=== PATIENT | female | born 1970 | race Caucasian/White ===

== ENCOUNTER 2019-04-14 15:38 | Outpatient (CLI) | payer BC, MEDICAID, SELFPAY ==
[2019-04-14 16:35] LABS: Basophils % 0.5 %; Eosinophils # 0.1 10^3/uL (0.0-0.8); Eosinophils % 2.3 %; Hematocrit 35.7 % (37.0-47.0); Hemoglobin 11.2 g/dL (11.5-15.3); Lymphocytes % 45.5 %; Mean Corpuscular HGB Conc 31.4 g/dL (30.0-36.0); Mean Corpuscular Hemoglobin 29.2 pg (28.0-34.0); Mean Corpuscular Volume 93.2 fL (81-99); Mean Platelet Volume 9.1 fL (7.4-10.4); Monocytes # 0.4 10^3/uL (0.2-0.9); Monocytes % 8.9 %; Neutrophils # 1.8 10^3/uL (1.8-7.7); Neutrophils % 42.6 %; Nucleated Red Blood Cells % 0 %; Platelet Count 223 10^3/cmm (130-400); Red Blood Count 3.83 10^6/uL (4.1-5.3); Red Cell Distribution Width 12.1 % (12.1-15.1); White Blood Count 4.3 10^3/uL (4.0-10.0)
== END 2019-04-14 15:39 | disposition home or self-care (01) ==
LOC: ONCMED 15:43
PROVIDERS: Family Provider Electrodiagnostic Medicine; PCP Electrodiagnostic Medicine; Visit Provider Internal Medicine Hematology & Oncology
DX: D05.12 Intraductal carcinoma in situ of left breast (principal)
CPT/HCPCS: 36415; 85025

== ENCOUNTER 2019-04-18 15:52 | Outpatient (CLI) | payer BC, MEDICAID, SELFPAY | END 2019-04-18 15:53 | disposition home or self-care (01) | PROVIDERS: Family Provider Electrodiagnostic Medicine; PCP Electrodiagnostic Medicine; Visit Provider Internal Medicine Hematology & Oncology | DX: D05.12 Intraductal carcinoma in situ of left breast (principal); D64.9 Anemia, unspecified; Z17.0 Estrogen receptor positive status [ER+]; Z92.3 Personal history of irradiation; Z79.810 Long term (current) use of selective estrogen receptor modulators (SERMs) | CPT/HCPCS: 99214 ==

== ENCOUNTER 2019-08-16 08:56 | Outpatient (CLI) | payer BC, MEDICAID, SELFPAY ==
--- NOTE | 2019-08-16 09:18 | MM_ITS ---
WS: [id number] DIAGNOSTIC BILATERAL DIGITAL MAMMOGRAM WITH CAD HISTORY: HX OF BREAST CA COMPARISON: 07/23/2018, 05/28/2017 and 06/09/2016 TECHNIQUE: Bilateral craniocaudad, mediolateral oblique, and mediolateral views are submitted. Comput er aided detection utilized. Breast composition: There are scattered areas of fibroglandular density. Postsurgical changes in the posterior LEFT breast. There is distortion in the posterior LEFT breast which is stable. No new mass. RIGHT breast is negative. No retraction of either nipple. No suspicious calcification. MM/[id number] IMPRESSION: BI-RADS: 2-Benign FOLLOW UP: 1 Year Follow-up
== END 2019-08-16 08:57 | disposition home or self-care (01) ==
LOC: RADSHAW 09:02
PROVIDERS: PCP Electrodiagnostic Medicine; Visit Provider Internal Medicine Hematology & Oncology
DX: Z85.3 Personal history of malignant neoplasm of breast (principal)
CPT/HCPCS: 77066

== ENCOUNTER 2019-10-11 13:41 | Outpatient (CLI) | payer BC, MEDICAID, SELFPAY ==
[2019-10-11 13:59] LABS: Basophils % 0.2 %; Eosinophils # 0.1 10^3/uL (0.0-0.8); Eosinophils % 1.4 %; Hemoglobin 11.6 g/dL (11.5-15.3); Lymphocytes # 1.3 10^3/uL (0.8-4.8); Lymphocytes % 31.5 %; Mean Corpuscular HGB Conc 31.4 g/dL (30.0-36.0); Mean Corpuscular Hemoglobin 29.8 pg (28.0-34.0); Mean Corpuscular Volume 95.1 fL (81-99); Mean Platelet Volume 9.3 fL (7.4-10.4); Monocytes # 0.3 10^3/uL (0.2-0.9); Neutrophils # 2.48 10^3/uL (1.8-7.7); Neutrophils % 59.7 %; Nucleated Red Blood Cells % 0 %; Platelet Count 192 10^3/cmm (130-400); Red Blood Count 3.89 10^6/uL (4.1-5.3); Red Cell Distribution Width 11.8 % (12.1-15.1); White Blood Count 4.2 10^3/uL (4.0-10.0)
--- NOTE | 2019-10-11 16:05 | ONC FU_ITS ---
Dr. 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 She had palpated a breast mass for 2 months prior to presentation. The mammogram 05/04/2014 showed a cluster of calcification posterior to the large cyst in the left breast. On 05/19/2014 stereotactic biopsy revealed ductal carcinoma in situ (DCIS) with focal comedo necrosis, ER 96%, WA 95%. Cytology on cystic fluid was not performed. On 06/16/2014 she underwent a left breast lumpectomy by Dr. Trivedi. Her surgical pathology consisted of 2 specimens. Both showed rare foci of microscopic comedo DCIS and solid DCIS, measuring 3 mm and 2 mm respectively, nuclear grade 3 out of 3, margins were negative. She completed adjuvant radiation treatment to the left breast in August 2014. She began on chemoprevention with tamoxifen in October 2014. , Completed 5 years of tamoxifen in September 2019 Her medical history is otherwise unremarkable. She has no other ongoing medical illnesses. She is a nonsmoker. She comes today for follow-up. She continues on tamoxifen. She is tolerating it well .Patient recently noted a small nodule in her breast rt and underwent mammogram on 06/09/2016 and also had right breast ultrasound which confirmed Bi-RADS category 4a suspicious and biopsy was suggested underwent sonogram guided biopsy on 07/04/2016 it came back benign breast tissue with usual duct hyperplasia and focal fibrosis with changes suggesting cyst wall Mammogram done on 07/23/2018 showed no abnormality Underwent menopause in July 2018, her [employer] physician Dr. Champagne examined in October 2018, that time she underwent endometrial biopsy was negative. Also check her hormonal level.As per patient she was told, everything was fine. Follow-up mammogram done on August 16, 2019 showed BI-RADS 2 benign findings Came for follow-up, denies any specific complaints, no fever chills, no nausea or vomiting, no diarrhea constipation, no nipple discharge, no breast tenderness, no axillary lymphadenopathy, no vaginal bleeding. Stopped having menstrual periods many months ago Medications: Biotin 1 Tablet Oral daily, Cholecalciferol 1 (400 Units) Tablet Oral daily, Tamoxifen Citrate 1 (20 mg) Tablet Oral daily, Vitamin C 1 Tablet (of 500 mg) Oral daily Allergies: No Known Allergies. Review of Systems: Constitutional - Her energy level is good. Appetite is good and weight is stable. No fever, chills, hot flashes, or night sweats, ENMT - No sinus congestion/drainage. No mouth sores. No sore throat or difficulty swallowing, Hematologic/Lymphatic - No abnormal bruising or bleeding, Respiratory - No shortness of breath. No cough. No pleuritic pain or hemoptysis, Cardiovascular - No angina pain. No palpitations, Gastrointestinal - No nausea or vomiting. No heartburn or acid reflux. No diarrhea or constipation. No blood in the stool or black stools, Genitourinary (F) - No dysuria or hematuria. No urinary frequency. No urgency or incontinence, Musculoskeletal - No joint or bone pain, Integumentary - Denies alopecia, blistering, bruising, dry skin, facial burning, nail changes, photosensitivity, pruritus, rash and urticaria, Neurologic - No headache or dizziness. No numbness/paresthesias or other focal neurologic symptoms, Psychiatric - No anxiety or depression. No insomnia. Vital Signs: Performed on Oct 11, 2019 14:52 Height - 65.00 in Weight - 155.6 lbs (HIGH) BSA - 1.78 sq.m BMI - 25.89 Temperature - 99.3 F (HIGH) Pulse - 85 /min Respiration - 18 /min BP - 151/91 mm(hg) (HIGH) O2 Sat - 97 % Pain - 0 Performance Status: 0 - Fully active, able to carry on all predisease activities without restrictions. (ECOG) Physical Examination: Respiratory - Lungs are clear, Cardiovascular - Regular rate and rhythm of heart, Gastrointestinal - Soft, bowel sounds present, Extremities - No visible edema. Lab/Imaging: Test performed on Apr 14, 2019 15:47 WBC 4.3 10 3/uL RBC 3.83 10 6/uL HGB 11.2 g/dL HCT 35.7 % MCV 93.2 fL MCH 29.2 pg MCHC 31.4 g/dL RDW 12.1 % Platelet Count 223 10 3/cmm MPV 9.1 fL Neutrophils 1.8 10 3/uL Lymphocytes 2.0 10 3/uL Monocytes 0.4 10 3/uL Eosinophils 0.1 10 3/uL Basophils 0.0 10 3/uL Neutrophil % 42.6 % Lymphocyte % 45.5 % Monocyte % 8.9 % Eosinophil % 2.3 % Basophils % 0.5 % Impression: 1. Pre-menopausal woman with nuclear grade 3 ductal carcinoma in situ (DCIS) of the left breast, stage 0 (T1is, N0, M0), ER/WA positive. She underwent left breast lumpectomy on 10/16/2014. 2. She completed adjuvant radiation treatment in August 2014. She eventually agreed and began chemoprevention with tamoxifen in October 2014, planned for 5 years. 3. Adjuvant hormonal therapy with tamoxifen 20 mg daily began in October 2014.Completed 5 years of tamoxifen in September 2019 4. abnormal mammogram right breast on 06/09/2016, confirmed with ultrasound Status post ultrasound guided needle biopsy on 07/04/2016 [address] benign breast tissue with usual duct hyperplasia and focal fibrosis with changes suggesting cyst wall Mammogram done on 05/28/2017 showed BI-RADS; 2-benign, Follow-up mammogram done on August 16, 2019 showed BI-RADS 2, benign Plan: Discussed with patient regarding her labs white blood count 4.2 hemoglobin 11.6 crit 37 platelets 192,000 and follow-up mammogram done in August 2019 shows benign findings, BI-RADS 2 Clinically, patient is doing well with no signs symptom suggestive of recurrence of disease, her follow-up mammogram is within normal limits and patient has completed 5 years of tamoxifen without any significant problem, at this point will discontinue her tamoxifen and then follow her on a yearly basis with follow-up mammogram. Mild anemia, hemoglobin improved to 11.6 g from 11.2 g and now in normal range, will continue to monitor. She return to clinic in 1 year with mammogram Signed By: Jose Nielsen M.D. <<Signature on File>>
== END 2019-10-11 13:42 | disposition home or self-care (01) ==
LOC: ONCMED 13:45
PROVIDERS: PCP Electrodiagnostic Medicine; Visit Provider Internal Medicine Hematology & Oncology
DX: Z08 Encounter for follow-up examination after completed treatment for malignant neoplasm (principal); Z86.000 Personal history of in-situ neoplasm of breast; D64.9 Anemia, unspecified; Z92.23 Personal history of estrogen therapy; Z92.3 Personal history of irradiation; Z92.21 Personal history of antineoplastic chemotherapy
CPT/HCPCS: 85025; G0463

== ENCOUNTER 2020-08-17 10:41 | Outpatient (CLI) | payer BC, MEDICAID, SELFPAY ==
--- NOTE | 2020-08-17 10:59 | MM_ITS ---
WS: [id number] BILATERAL DIGITAL DIAGNOSTIC MAMMOGRAM MAMMOGRAPHY WITH CAD CLINICAL INFORMATION: HX OF BREAST CA COMPARISON: August 16, 2019 TECHNIQUE: Bilateral CC, MLO, and ML views. FINDINGS: Scattered fibroglandular densities bilaterally. Punctate calcifications left breast. Postoperative ch anges posterior left breast with parenchymal scarring. No suspicious focal mass, asymmetry, calcifications, or architectural distortion. No evidence of melinda gnancy. MM/[id number] IMPRESSION: BI-RADS: 2-Benign FOLLOW UP: 1 Year Follow-up Recommend return to annual diagnostic mammography.
== END 2020-08-17 10:42 | disposition home or self-care (01) ==
PROVIDERS: PCP Electrodiagnostic Medicine; Visit Provider Internal Medicine Hematology & Oncology
DX: Z85.3 Personal history of malignant neoplasm of breast (principal)
CPT/HCPCS: 77066

== ENCOUNTER 2020-11-28 16:16 | Outpatient (CLI) | payer BC, MEDICAID, SELFPAY ==
--- NOTE | 2020-11-29 08:04 | ONC FU_ITS ---
Dr. 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 She had palpated a breast mass for 2 months prior to presentation. The mammogram 05/04/2014 showed a cluster of calcification posterior to the large cyst in the left breast. On 05/19/2014 stereotactic biopsy revealed ductal carcinoma in situ (DCIS) with focal comedo necrosis, ER 96%, WI 95%. Cytology on cystic fluid was not performed. On 06/16/2014 she underwent a left breast lumpectomy by Dr. Trivedi. Her surgical pathology consisted of 2 specimens. Both showed rare foci of microscopic comedo DCIS and solid DCIS, measuring 3 mm and 2 mm respectively, nuclear grade 3 out of 3, margins were negative. She completed adjuvant radiation treatment to the left breast in August 2014. She began on chemoprevention with tamoxifen in October 2014. , Completed 5 years of tamoxifen in September 2019 Her medical history is otherwise unremarkable. She has no other ongoing medical illnesses. She is a nonsmoker. She comes today for follow-up. She continues on tamoxifen. She is tolerating it well .Patient recently noted a small nodule in her breast rt and underwent mammogram on 06/09/2016 and also had right breast ultrasound which confirmed Bi-RADS category 4a suspicious and biopsy was suggested underwent sonogram guided biopsy on 07/04/2016 it came back benign breast tissue with usual duct hyperplasia and focal fibrosis with changes suggesting cyst wall Mammogram done on 07/23/2018 showed no abnormality Underwent menopause in July 2018, her [employer] physician Dr. Champagne examined in October 2018, that time she underwent endometrial biopsy was negative. Also check her hormonal level.As per patient she was told, everything was fine. Follow-up mammogram done on August 16, 2019 showed BI-RADS 2 benign findings Mammogram done on August 17, 2020 was BI-RADS 2, benign Came for follow-up, denies any specific complaint except slowing down menses sometime spotting only and still very regular but no in between bleeding,, patient is attributing to the possibility of beginning menopause, as per patient she used to follow Dr. Champagne, [employer] SERV[employer] SUPER[employer] at [facility], on regular basis but now due to insurance coverage she is considering switching her care to local F[employer] SERVICE SUPERVISOR. Denies any new bony pains denies any fever chills, denies any nausea or vomiting denies any weight loss denies any headaches, patient had mammogram done in August, it was unremarkable Medications: Biotin 1 Tablet Oral daily, Cholecalciferol 1 (400 Units) Tablet Oral daily, Tamoxifen Citrate 1 (20 mg) Tablet Oral daily, Vitamin C 1 Tablet (of 500 mg) Oral daily Allergies: No Known Allergies. Review of Systems: Review of Systems is not available for this patient. Vital Signs: Performed on Nov 28, 2020 16:32 Height - 65.00 in Weight - 168.6 lbs (HIGH) BSA - 1.84 sq.m BMI - 28.06 Temperature - 97.9 F (LOW) Pulse - 85 /min Respiration - 18 /min BP - 166/90 mm(hg) (HIGH) O2 Sat - 97 % Pain - 0 Fatigue - 0 Performance Status: 0 - Fully active, able to carry on all predisease activities without restrictions. (ECOG) Physical Examination: Respiratory - Lungs are clear to auscultation, Cardiovascular - Regular rate and rhythm of heart, Gastrointestinal - Soft, bowel sounds present, Extremities - No visible edema. Lab/Imaging: Most recent lab results are not available for this patient. Impression: 1. Pre-menopausal woman with nuclear grade 3 ductal carcinoma in situ (DCIS) of the left breast, stage 0 (T1is, N0, M0), ER/[place] positive. She underwent left breast lumpectomy on 10/16/2014. 2. She completed adjuvant radiation treatment in August 2014. She eventually agreed and began chemoprevention with tamoxifen in October 2014, planned for 5 years. 3. Adjuvant hormonal therapy with tamoxifen 20 mg daily began in October 2014.Completed 5 years of tamoxifen in September 2019 4. abnormal mammogram right breast on 06/09/2016, confirmed with ultrasound Status post ultrasound guided needle biopsy on 07/04/2016 [address] path benign breast tissue with usual duct hyperplasia and focal fibrosis with changes suggesting cyst wall Mammogram done on 05/28/2017 showed BI-RADS; 2-benign, Follow-up mammogram done on August 16, 2019 showed BI-RADS 2, benign mammogram finding which was done on August 17, 2020 and it showed BI-RADS 2, benign Plan: Discussed with patient regarding her mammogram finding which was done on August 17, 2020 and it showed BI-RADS 2, benign and follow-up in 1 year recommended Clinically, patient has no signs symptom suggestive of recurrence of disease as far as DCIS left breast is concerned, patient has had completed 5 years of tamoxifen in September 2020. And now being followed on a yearly basis with follow-up mammogram, due to insurance and copayments and inconvenience, patient was wondering if she can follow with her primary care physician on regular basis and if follow-up mammogram shows any abnormality she would contact us so in that case, we will see her on as-needed basis. As far as slowing down of menses concerned, probably patient is approaching menopause and patient is considering establishing care with a local [employer]PER[employer]OR as her previous [employer] physician Dr. Champagne at [facility], as per patient is out of her insurance network now. We will refer her to [facility] department for evaluation and follow-up Signed By: Jose Nielsen M.D. <<Signature on File>>
== END 2020-11-28 16:17 | disposition home or self-care (01) ==
LOC: ONCMED 16:21
PROVIDERS: PCP Electrodiagnostic Medicine; Visit Provider Internal Medicine Hematology & Oncology
DX: Z09 Encounter for follow-up examination after completed treatment for conditions other than malignant neoplasm (principal); Z86.000 Personal history of in-situ neoplasm of breast; N92.5 Other specified irregular menstruation; Z92.21 Personal history of antineoplastic chemotherapy; Z92.3 Personal history of irradiation; Z90.12 Acquired absence of left breast and nipple; Z79.899 Other long term (current) drug therapy
CPT/HCPCS: 99214

== ENCOUNTER → 2021-03-14 09:36 | Outpatient (BNVA) | payer MEDICAID, SELFPAY | PROVIDERS: PCP Electrodiagnostic Medicine; Visit Provider Obstetrics & Gynecology | DX: Z12.4 Encounter for screening for malignant neoplasm of cervix (principal) | CPT/HCPCS: 87624 ==

== ENCOUNTER 2021-10-28 13:45 | Outpatient (CLI) | payer OTHER, MEDICAID, SELFPAY ==
--- NOTE | 2021-10-28 13:55 | MM_ITS ---
WS: [id number] BILATERAL 3D TOMOSYNTHESIS DIGITAL DIAGNOSTIC MAMMOGRAPHY WITH CAD CLINICAL INFORMATION: Z85.3 - Personal history of malignant neoplasm of breast COMPARISON: August 17, 2020 TECHNIQUE: Bilateral CC, MLO, and ML views. FINDINGS: Scattered fibroglandular densities bilaterally. A few tiny incidental punctate calcifications. Postop erative changes posterior LEFT breast parenchymal scarring. No suspicious focal mass, asymmetry, calcifications, or architectural distortion. No evidence of melinda gnancy. MM/[id number] IMPRESSION: BI-RADS: 2-Benign FOLLOW UP: 1 Year Follow-up Recommend return to annual diagnostic mammography.
== END 2021-10-28 13:46 | disposition home or self-care (01) ==
PROVIDERS: PCP Electrodiagnostic Medicine; Visit Provider Electrodiagnostic Medicine
DX: Z85.3 Personal history of malignant neoplasm of breast (principal)
CPT/HCPCS: 77062

== ENCOUNTER → 2022-03-31 10:30 | Outpatient (BNVA) | payer BC, MEDICAID, SELFPAY | PROVIDERS: PCP Electrodiagnostic Medicine; Visit Provider Obstetrics & Gynecology | DX: Z01.419 Encounter for gynecological examination (general) (routine) without abnormal findings (principal) | CPT/HCPCS: 87624 ==

== ENCOUNTER → 2022-04-18 13:17 | Outpatient (BNVA) | payer BC, MEDICAID, SELFPAY | PROVIDERS: PCP Electrodiagnostic Medicine; Visit Provider Obstetrics & Gynecology | DX: R10.32 Left lower quadrant pain (principal); N85.2 Hypertrophy of uterus; D25.9 Leiomyoma of uterus, unspecified | CPT/HCPCS: 76830 ==

== ENCOUNTER 2023-07-27 07:20 | Outpatient (CLI) | payer BC, MEDICAID, SELFPAY ==
--- NOTE | 2023-07-27 07:32 | MM_ITS ---
WS: [id number] DIAGNOSTIC BILATERAL DIGITAL BREAST TOMOSYNTHESIS MAMMOGRAPHY WITH CAD HISTORY: HX OF BREAST CA COMPARISON: 10/28/2021, 08/17/2020, 08/16/2019 TECHNIQUE: Bilateral craniocaudad, mediolateral oblique, and mediolateral views are submitted with to mosynthesis and SM. Computer aided detection utilized. Breast composition: There are scattered areas of fibroglandular density. Distortion noted in the post erior lateral LEFT breast at the site of the prior biopsy/lumpectomy is stable. Volume loss in the LE FT breast from prior lumpectomy. RIGHT breast is negative. MM/[id number] IMPRESSION: BI-RADS: 2-Benign FOLLOW UP: 1 Year Follow-up
== END 2023-07-27 07:21 | disposition home or self-care (01) ==
LOC: RAD 07:22
PROVIDERS: PCP Electrodiagnostic Medicine; Visit Provider Electrodiagnostic Medicine
DX: Z85.3 Personal history of malignant neoplasm of breast (principal); R92.323 Mammographic fibroglandular density, bilateral breasts
CPT/HCPCS: 77062; G0279